=== PATIENT | male | born 1950 | race Caucasian/White ===

== ENCOUNTER 2022-01-04 11:28 | Emergency (ER) | payer OTHER, MEDICARE ==
[2022-01-04 11:41] VITALS: RESP 20; TEMP 98.2; BMI 33.4
[2022-01-04] MEDS ORDERED: ASPIRIN 325 MG TABLET PO ONE (11:45)
[2022-01-04] MEDS ORDERED: ASPIRIN 81 MG CHEWABLE TABLETS ONE (11:58)
[2022-01-04] MEDS ORDERED: LORazepam 2 MG TABLET PO ONE (12:16)
[2022-01-04] MEDS ORDERED: LORazepam 0.5 MG TABLET ONE (12:23)
[2022-01-04 12:45] LABS: HEMATOCRIT 43.7 % (35.4-49); HEMOGLOBIN 14.5 G/dL (11.7-16.9); MCH 28.3 pg (25.7-33.7); MCHC 33.2 g/dl (32.0-35.9); MEAN CELL VOLUME 85.1 fl (80-96); PLATELET COUNT 206.9 10^3/uL (134-434); RBC 5.13 10^6/uL (4.00-5.60); RDW 15.5 % (11.9-15.9); WHITE BLOOD COUNT 8.2 10^3/uL (4.0-10.8)
[2022-01-04 12:47] LABS: ALBUMIN 3.8 g/dl (3.4-5.0); BILIRUBIN,TOTAL 2.1 mg/dl (0.2-1); CALCIUM 8.8 mg/dl (8.5-10); CREATININE 0.9 mg/dl (0.55-1.3); TOT PROT 6.9 g/dl (6.4-8.2)
[2022-01-04 12:53] LABS: PLATELET ESTIMATE ADEQUATE
[2022-01-04 15:02] VITALS: BP 141/86; PULSE 73
== END 2022-01-04 18:52 | disposition home or self-care (01) ==
LOC: FER 11:28
DX: F41.9 Anxiety disorder, unspecified (principal); R07.9 Chest pain, unspecified
CPT/HCPCS: 36415; 71046-TC-FY; 71275-TC; 80053; 83690; 84484; 85027; 85379; 93005; 99285-25; C1887; Q9967